=== PATIENT | female | born 1980 | race Caucasian/White ===

== ENCOUNTER 2024-01-09 16:48 | Emergency (ER) | payer OTHER, SELFPAY ==
[2024-01-09 16:51] VITALS: BP 143/101
[2024-01-09 17:26] LABS: % Basophils 0.5 % (0-2); % Eosinophils 1.3 % (0-6); % Immature Granulocytes 0.3 % (0-0.5); % Lymphocytes 29.4 % (20.5-51.1); % Monocytes 4.7 % (1.7-9.3); % Neutrophils 63.8 % (42.2-75.2); Absolute Eosinophils 0.1 10^3/uL (0-0.7); Absolute Lymphocytes 2.3 10^3/uL (1.2-3.4); Absolute Monocytes 0.4 10^3/uL (0.1-0.6); Absolute Neutrophils 4.9 10^3/uL (1.4-6.5); Hematocrit 42.9 % (37.0-47.0); Hemoglobin 14.8 g/dL (12.0-16.0); Mean Corp Hgb Conc. 34.5 g/dL (33.0-37.0); Mean Corpuscular Hgb 32.1 pg (27.0-31.0); Mean Corpuscular Volume 93.1 fL (81.0-99.0); Mean Platelet Volume 9.8 fL (7.4-10.4); Nucleated Red Blood Cells % 0 %; Platelet Count 258 10^3/uL (130-400); Red Blood Cell Count 4.61 10^6/uL (4.20-5.40); Red Cell Dist. Width 11.9 % (11.5-14.5); White Blood Cell Count 7.7 10^3/uL (4.8-10.8)
[2024-01-09 17:39] LABS: ALT (SGPT) 108 U/L (0-35); AST (SGOT) 71 U/L (14-36); Albumin 4.7 g/dl (3.5-5.0); Alkaline Phosphatase 60 U/L (38-126); Blood Urea Nitrogen 11 mg/dl (7-17); Calcium 10.2 mg/dl (8.4-10.2); Carbon Dioxide 22 mmol/L (22-30); Chloride 104 mmol/L (98-107); Glucose 118 mg/dl (70-99); Potassium 3.8 mmol/L (3.5-5.1); Sodium 135 mmol/L (135-145); Total Bilirubin 0.4 mg/dl (0.2-1.3); Total Protein 7.6 g/dl (6.3-8.2); eGFR > 60.00
[2024-01-09 17:47] LABS: Troponin I < 0.012 ng/ml
[2024-01-09 18:06] VITALS: BP 125/82; BMI 35.6
[2024-01-09 19:02] VITALS: BP 132/82
--- NOTE | 2024-01-09 19:11 | ED.GENMED ---
History of Present Illness
<Meaghan Salomon PA-C - Last Filed: 01/10/24 00:17>
General
Chief Complaint: Dizziness
Source: patient
Exam Limitations: none
Time Seen by Provider: 01/09/24 18:17
Nursing documentation reviewed up to this point in time: agreed with
Travel History
Have you had any contact with someone who has COVID-19?: No
Do you have any symptoms of coronavirus? Fever > 100 degrees, chills, cough, shortness of breath, sore throat, loss of taste or smell, muscle aches, or headache?: No
History of Present Illness
History of Present Illness:
Patient is a 43 year old female with no significant past medical history presenting for evaluation of dizziness. Symptoms started yesterday around 7 PM when she started feeling dizzy. She reports some mild associated shortness of breath. Dizziness
has been mostly constant and not positional in nature. She also endorses that her left arm has been numb over the past few weeks. In addition�she reports intermittent headaches over the past 2 weeks. She does state that the symptoms are similar to
her symptoms that she is experienced in the past. She has been seen in an ER in [place] and in [place] about 5 to 6 years ago with negative neuroimaging, including MRI.
She denies any fevers, chills, visual changes. No sick contacts. She denies any back pain, bowel/bladder incontinence.
Patient denies any recent travel or recent surgeries. She denies any pain or swelling in her lower legs. No personal or family history of blood clotting disorders
Patient's LMP was a few days ago.
She does report a stressful life with work, kids.
Past History
<Meaghan Salomon PA-C - Last Filed: 01/10/24 00:17>
Past History
ED Past Medical History: Psychiatric
Social History
Alcohol: Chronic alcoholic
Personal:
Living: with family
Phy Exam
<Meaghan Salomon PA-C - Last Filed: 01/10/24 00:17>
Physical Exam
Physical Exam:
General: Well appearing and non-toxic
HEENT: Atraumatic, normocephalic; pupils equal round and reactive to light bilaterally, extraocular muscles intact, visual gillette intact bilaterally, protecting airway
Neck: appears supple, no JVD or cervical spine tenderness
CV: Regular rate and rhythm, heart sounds normal, no evidence of cyanosis
Resp: No evidence of respiratory distress, lungs clear bilaterally
Abd: Soft, nontender, non-distended
Extremities: No deformities, no evidence of cyanosis or edema; DP pulses palpable bilaterally
Neuro: alert and oriented x 3; speech normal; no focal neurologic deficits on exam, normal [id number]; cranial nerves II through XII intact bilaterally
Psych: Mildly anxious appearing
Skin: Intact, no rashes
Scores
<Meaghan Salomon PA-C - Last Filed: 01/10/24 00:17>
NIH Stroke Score
Level of Consciousness: 0 - Alert
LOC Questions: 0-Answers both correctly
LOC Commands: 0-Performs both correctly
Best Horizontal Gaze: 0-Normal
Visual [place]: 0=Normal, no visual loss
Facial Palsy: 0=Normal, symmetrical
Motor - Right Arm: 0=No drift 10 seconds
Motor - Left Arm: 0=No drift 10 seconds
Motor - Right Le-No drift 5 seconds
Motor - Left Le-No drift 5 seconds
Limb Ataxia: 0-Absent
Sensation: 0-Normal
Best Language: 0-No aphasia
Dysarthria: 0-Normal
Extinction and Inattention: 0-No abnormality
Total Score:: 0
Course
<Meaghan Salomon PA-C - Last Filed: 01/10/24 00:17>
Orders/Labs/Results
Orders:
Orders
01/09/24 17:01
Electrocardiogram (*1) Urgent
Reason for Study: Chest Pain
01/09/24 17:02
EKG- Treatment ONCE
01/09/24 17:10
Complete Blood Count/With Diff Urgent
Comprehensive Metabolic Panel Urgent
Troponin I Urgent
01/09/24 19:25
0.9% Sodium Chloride 1000 ml [Nss] 1,000 ml IV BOLUS
01/09/24 19:26
CT Head W/o Iv Contrast Urgent
Comment:
Reason For Exam: dizziness, left arm numbness
01/09/24 19:33
D-Dimer Urgent
Abnormal Lab Results
01/09/24
17:10
MCH 32.1 H pg
(27.0-31.0)
Glucose 118 H mg/dl
(70-99)
AST 71 H U/L
(14-36)
ALT 108 H U/L
(0-35)
01/09/24 17:10
01/09/24 17:10
Vital Signs
Initial and Last Documented VS:
Initial Vital Signs
Temp Pulse Resp BP Pulse Ox
98.9 F 118 22 143/101 98
01/09/24 16:51 01/09/24 16:51 01/09/24 16:51 01/09/24 16:51 01/09/24 16:51
Last Documented Vital Signs
Temp Pulse Resp BP Pulse Ox
98.9 F 118 22 130/88 99
01/09/24 16:51 01/09/24 16:51 01/09/24 16:51 01/09/24 21:00 01/09/24 21:30
Rushlt;Alcon Mario, DO - Last Filed: 01/09/24 19:25>
Orders/Labs/Results
Orders:
Orders
01/09/24 17:01
Electrocardiogram (*1) Urgent
Reason for Study: Chest Pain
01/09/24 17:02
EKG- Treatment ONCE
01/09/24 17:10
Complete Blood Count/With Diff Urgent
Comprehensive Metabolic Panel Urgent
Troponin I Urgent
01/09/24 19:25
0.9% Sodium Chloride 1000 ml [Nss] 1,000 ml IV BOLUS
01/09/24 19:26
CT Head W/o Iv Contrast Urgent
Comment:
Reason For Exam: dizziness, left arm numbness
01/09/24 19:33
D-Dimer Urgent
Abnormal Lab Results
01/09/24
17:10
MCH 32.1 H pg
(27.0-31.0)
Glucose 118 H mg/dl
(70-99)
AST 71 H U/L
(14-36)
ALT 108 H U/L
(0-35)
01/09/24 17:10
01/09/24 17:10
Vital Signs
Initial and Last Documented VS:
Initial Vital Signs
Temp Pulse Resp BP Pulse Ox
98.9 F 118 22 143/101 98
01/09/24 16:51 01/09/24 16:51 01/09/24 16:51 01/09/24 16:51 01/09/24 16:51
Last Documented Vital Signs
Temp Pulse Resp BP Pulse Ox
98.9 F 118 22 130/88 99
01/09/24 16:51 01/09/24 16:51 01/09/24 16:51 01/09/24 21:00 01/09/24 21:30
<Meaghan Salomon PA-C - Last Filed: 01/10/24 00:17>
MDM/Problems Addressed
Differential Diagnosis Includes:
Viral illness, dehydration, migraine, PE, arrhythmia, doubt CVA, MS, malignancy/mass
MDM/Problems Addressed:
Patient is a 43-year-old female with no significant past medical history presenting for a variety of vague complaints. Dizziness started last night with numbness of both left arm and right cheek intermittently over the past few weeks with
associated intermittent headaches over the past few weeks. Has experienced similar symptoms in the past a few years ago with negative neuroimaging. She is mildly hypertensive on arrival and tachycardic. On my exam her heart rate was in mid to
upper 90s. Otherwise vital signs stable. Physical exam as documented above. Neuroexam without any focal neurologic deficits. Heart regular rate and rhythm, lungs clear bilaterally. CBC and CMP obtained in triage show mild elevation in AST and
ALT, otherwise no clinically significant abnormalities. Troponin is negative. She is not having any chest pain at this time. Her abdomen is soft and nontender. Given dizziness and documented tachycardia�will check D-dimer to rule out PE although
I feel this is very unlikely. Will check head CT. Will start IV fluids.
D-dimer negative. Head CT shows no acute abnormalities. Workup here has been entirely negative. On reassessment�patient does report improvement following IV fluid administration. Unsure exact etiology of patient's symptoms. She is
nontoxic-appearing, vital stable. Her blood pressure has decreased and heart rate is upper limit of normal. This may be related to a viral illness or stress. She is stable for discharge with close return precautions, primary care follow-up. She
will have her labs checked in a a month to ensure her LFTs are trending down. Patient comfortable with this plan. All questions answered.
Chronic conditions affecting care:
N/A
Acute Exacerbation and/or Progression of Chronic Illness:
N/A
<Meaghan Salomon PA-C - Last Filed: 01/10/24 00:17>
*Radiology
Radiology exam reviewed: preliminary read by ED provider and radiology read reviewed
*Pulse Oximetry
Patient hypoxic: no
*EKG
Interpreted by ED Provider?: Yes
EKG Intrepretation Date: 01/10/24
Interpretation: abnormal
Comparison EKG: changes noted
Heart Rate: 108
Rate: tachycardiac
Rhythm: sinus
[place]: normal axis
Ischemia: no ischemia
*Industrial [employer] Interpretation
Rate: normal
Interpretation: normal
Heart Rate: 96
Rhythm: sinus
*Critical Care Note
Total Time (30-74mins, 75-104mins- exclusive of procedures): Not Applicable
ED Attending Note
<Meaghan Salomon PA-C - Last Filed: 01/10/24 00:17>
-
Portions of this chart may have been created with voice recognition software.� Occasional wrong word or��sound alike� substitutions may have occurred due to the inherent limitations of voice recognition software.
<Alcon Mario DO - Last Filed: 01/09/24 19:25>
ED Attending Note
Patient seen and examined by attending physician: Yes
I performed the substantive portion of visit, reviewed & personally made and approve the management plan that is documented in note by myself or FIORELLA.: Yes
I performed a history and physical exam of patient and discussed management with resident, I reviewed resident's note and agree with documented findings and plan of care.: Yes
ED Attending Note:
I evaluated patient at bedside. The patient has had dizziness similar to this twice in the past, once someone [place] and another time manage to [place] for 5 days. She states she has had neuroimaging about 5 to 6 years ago while at
[place]. She more recently been having some vague headaches in the back of her head. She also reports some intermittent left arm numbness and right facial numbness similar to what she has had in the past. She currently has an NIH stroke scale of
0 and has appropriate mental status currently. Will obtain CT imaging for further evaluation.
EKG: Sinus 108, no acute ST abnormality, no significant change from 07/04/2012.
Discharge Plan
Departure
Patient Disposition: Home (Routine Discharge)
Date of Disposition: 01/09/24
Time of Disposition: 21:36
Patient with high blood pressure during this ER visit?: No
Condition: Good
Covid-19: Not Applicable
Discharge Problem:
Dizziness
Instructions: Headache, Adult (DC), Dizziness
Referrals:
Charbel Lee MD [Family Provider] -
Activity Restrictions/Additional Instructions:
-Return to the emergency department with any high fevers, severe headache or neck pain, chest pain, shortness of breath, severe back pain, numbness/tingling or weakness, persistent dizziness/fainting, worsening in current symptoms, or any other
concerns
-As discussed - the CT imaging of your brain performed in the emergency department today should no acute abnormalities. If symptoms persist- you should follow-up with your primary care provider. You may require additional imaging
-In addition- your liver function tests were found to be elevated while in the emergency department. You should have these levels rechecked with your primary care provider in a month to ensure improving
-It is important to stay well hydrated
Interventions
Interventions:
*Risk Screen - Suicide Last Done: 01/09/24 18:06
*General Assessment Last Done: 01/09/24 18:06
*Neglect/Abuse Screening Last Done: 01/09/24 18:06
ED- Fall Risk Assessment Last Done: 01/09/24 18:06
*ED COVID-19 Vaccine History Last Done: 01/09/24 18:06
*Nursing Disposition Last Done: 01/09/24 21:57
ED- Neurological Assessment Last Done: 01/09/24 18:06
ED- Cardiac Assessment Last Done: 01/09/24 18:06
ED Swallowing Screen Last Done: 01/09/24 18:06
Discharge Date and Time
Discharge Date/Time: 01/09/24 21:58
Print Language: IRANIAN
[2024-01-09] MEDS: NSS 1000 IV (19:35)
[2024-01-09 19:58] LABS: D-Dimer 0.32 ug/mlFEU (0.00-0.50)
[2024-01-09 20:01] VITALS: BP 116/65
[2024-01-09 21:00] VITALS: BP 130/88
== END 2024-01-09 21:58 | disposition home or self-care (01) ==
LOC: EMR 16:48
PROVIDERS: Emergency Medicine; Physician Assistant; EMERGENCY PHYSICIAN Emergency Medicine; FAMILY PHYSICIAN Internal Medicine
DX: R42 Dizziness and giddiness (principal)
CPT/HCPCS: 99284; 70450; 80053; 84484; 85025; 85379; 93005